=== PATIENT | male | born 1950 | race Caucasian/White ===

== ENCOUNTER 2022-08-28 15:41 | Emergency (ER) | payer MEDICARE ==
[2022-08-28] VITALS (9 sets, daily range): BP systolic 112–133; BP diastolic 46–73
[~2022-08-28] VITALS: Ht 177.8 cm; Wt 97.7 kg
[~2022-08-28 15:41] MED LIST: CARDIZEM120 MG PO; DITROPAN OR; EQ ASPIRIN81 MG OR; FISH OIL1400 MG OR; GNP RED YEAST RICE OR; MAGNESIUM300 MG OR; MORPHINE SUL30 MG OR; VITAMIN D2000 UNIT OR; ZOFRAN ODT4 MG PO
[2022-08-28] MEDS ORDERED: OMEPRAZOLE DR40 MG PO (16:07)
[2022-08-28 16:10] LABS: HEMATOCRIT 37.5 % (39.0-50.0); HEMOGLOBIN 12.4 g/dl (14.0-18.0); IMMATURE GRANULOCYTES 0.8 % (0.0-5.0); MEAN CELL VOLUME 87.2 fL CALC (80.0-100.0); MEAN CORPUSCULAR HGB 28.8 pG CALC (26.0-32.0); MEAN CORPUSCULAR HGB CONC 33.1 g/dL CAL (32.0-36.0); NEUT# 3.19 thou/uL (1.82-7.42); RED BLOOD COUNT 4.3 mill/uL (4.70-6.10); RED CELL DISTRI WIDTH 13.2 % (11.5-15.5)
[2022-08-28] MEDS ORDERED: MAXZIDE PO (16:10)
[2022-08-28] MEDS ORDERED: METFORMIN500 M2 PO (16:15)
[2022-08-28 16:32] LABS: ALBUMIN 4.2 g/dL (3.2-5.0); ALKALINE PHOSPHATASE 75 u/l (38-126); BUN 17 mg/dL (8-23); BUN/CREATININE RATIO 15 (12-20 (CALC)); CARBON DIOXIDE 27 mmol/l (22-30); CHLORIDE 100 mmol/l (95-108); CREATININE 1.1 mg/dL (0.7-1.3); GFR FOR AFR.AMER. > 60 ML/MIN (>=60 (CALC)); GFR OTHER RACES > 60 ML/MIN (>=60 (CALC)); SGOT/AST 46 u/l (19-48); SODIUM 137 mmol/l (137-146); TOTAL PROTEIN 6.7 g/dL (6.3-8.2)
[2022-08-28 16:41] LABS: ANION GAP 13 (6-22 (CALC)); BILIRUBIN, TOTAL 0.2 mg/dL (0.0-1.4); POTASSIUM 2.8 mmol/l (3.5-5.1)
[2022-08-28 17:17] LABS: URINE BILIRUBIN - DIPSTICK NEGATIVE (NEGATIVE); URINE BLOOD DIPSTICK NEGATIVE (NEGATIVE); URINE COLOR YELLOW; URINE GLUCOSE - DIPSTICK NEGATIVE (NEGATIVE); URINE KETONE NEGATIVE (NEGATIVE); URINE LEUK ESTERASE NEGATIVE (NEGATIVE); URINE PH 6.5 (4.5-8.0); URINE PROTEIN - DIPSTICK TRACE mg/dL (NEG-TRACE); URINE UROBILINOGEN - DIPSTICK 0.2 E.U./dL (0.2)
[2022-08-28 17:19] LABS: URINE NITRITE - DIPSTICK NEGATIVE (Negative)
== END 2022-08-28 19:28 | disposition home or self-care (01) ==
LOC: ED 15:41
PROVIDERS: Emergency Medicine
DX: U07.1 COVID-19 (principal); R53.1 Weakness; E87.6 Hypokalemia; I10 Essential (primary) hypertension